=== PATIENT | female | born 1980 | race Caucasian/White ===

== ENCOUNTER → 2020-02-25 | Outpatient (CLI) | payer OTHER ==
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
== END | disposition home or self-care (01) ==
LOC: US 10:02
PROVIDERS: ATTEND Nurse Practitioner Adult Health
DX: R22.1 Localized swelling, mass and lump, neck (principal)
CPT/HCPCS: 76536

== ENCOUNTER 2020-08-24 18:38 | Emergency (ER) | payer OTHER ==
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
== END 2020-08-24 19:00 | disposition left against medical advice (07) ==
LOC: ER 18:38
DX: T30.0 Burn of unspecified body region, unspecified degree (principal); Z53.21 Procedure and treatment not carried out due to patient leaving prior to being seen by health care provider